=== PATIENT | female | born 1940 | race Caucasian/White ===

== ENCOUNTER 2016-12-16 19:28 | Emergency (ER) | payer MEDICARE, OTHER ==
[~2016-12-16] VITALS: Ht 152.4 cm; Wt 54.6 kg
[~2016-12-16 19:28] MED LIST: DOXY-168 PO; HYDR12.53 PO
[2016-12-16 22:11] LABS: BLOOD UREA NITROGEN 20 mg/dL (7-18)
[2016-12-16 22:16] LABS: ASPARTATE AMINO TRANSFERASE 13 U/L (15-37)
[2016-12-16] MEDS ORDERED: POTASSIUM CHLORIDE 20 MEQ TAB.ER.PRT PO ONE (22:30)
[2016-12-16] MEDS ORDERED: POTASSIUM CHLORIDE 20 MEQ TAB.ER.PRT ONE (22:52)
[2016-12-16 23:36] VITALS: BP 142/72
== END 2016-12-16 23:39 | disposition home or self-care (01) ==
LOC: ED 23:32
DX: N30.00 Acute cystitis without hematuria (principal); E87.6 Hypokalemia; I10 Essential (primary) hypertension
CPT/HCPCS: 36415; 80053; 81001; 85025; 87086; 93005; 99285

== ENCOUNTER 2016-12-24 08:51 | Emergency (ER) | payer MEDICARE, OTHER ==
[~2016-12-24] VITALS: Ht 152.4 cm; Wt 53.8 kg
[2016-12-24] MEDS ORDERED: POTA10TA5 PO (09:23)
[2016-12-24] MEDS ORDERED: CHOL10003 PO (09:25)
[2016-12-24] MEDS ORDERED: VITA1TAB19 PO (09:26)
[2016-12-24 11:10] LABS: BLOOD UREA NITROGEN 13 mg/dL (7-18)
[2016-12-24 12:13] VITALS: BP 145/79
== END 2016-12-24 12:52 | disposition home or self-care (01) ==
LOC: ED 10:44
DX: R51 Headache (principal); I10 Essential (primary) hypertension; E87.6 Hypokalemia
CPT/HCPCS: 36415; 80048; 82040; 83735; 85025; 85651; 99284

== ENCOUNTER 2017-09-02 08:04 | Emergency (ER) | payer MEDICARE, OTHER ==
[~2017-09-02] VITALS: Ht 152.4 cm; Wt 53.3 kg
[~2017-09-02 08:04] MED LIST changes: +CHOL10003 PO; -DOXY-168 PO; +DOXY100T10 PO; +POTA10TA5 PO; +VITA1TAB19 PO
[2017-09-02 10:05] VITALS: BP 147/87
== END 2017-09-02 10:08 | disposition home or self-care (01) ==
LOC: ED 10:07
DX: J18.0 Bronchopneumonia, unspecified organism (principal); J20.9 Acute bronchitis, unspecified; I10 Essential (primary) hypertension; E87.6 Hypokalemia
CPT/HCPCS: 71046; 99284

== ENCOUNTER 2018-02-22 17:19 | Emergency (ER) | payer MEDICARE, OTHER ==
[~2018-02-22] VITALS: Ht 152.4 cm; Wt 50.5 kg
[2018-02-22] MEDS ORDERED: IBUPROFEN 200 MG TABLET PO ONE (18:00)
[2018-02-22] MEDS ORDERED: CYCLOBENZAPRINE 10 MG TABLET PO ONE (18:00)
[2018-02-22] MEDS ORDERED: IBUPROFEN 200 MG TABLET ONE (18:32)
[2018-02-22] MEDS ORDERED: CYCLOBENZAPRINE 10 MG TABLET ONE (18:32)
[2018-02-22 18:37] VITALS: BP 153/77
== END 2018-02-22 19:25 | disposition home or self-care (01) ==
LOC: ED 18:46
DX: J02.8 Acute pharyngitis due to other specified organisms (principal); B97.89 Other viral agents as the cause of diseases classified elsewhere; M54.2 Cervicalgia; G89.29 Other chronic pain; I10 Essential (primary) hypertension
CPT/HCPCS: 87081; 87880; 99284

== ENCOUNTER 2018-05-01 21:15 | Emergency (ER) | payer MEDICARE, OTHER ==
[~2018-05-01] VITALS: Ht 152.4 cm; Wt 50.3 kg
[2018-05-01] MEDS ORDERED: ONDANSETRON 2MG/ML, 2ML ONE (21:53)
[2018-05-01] MEDS ORDERED: ASPIRIN 81 MG TABLET CHEW ONE (21:54)
[2018-05-01] MEDS ORDERED: ONDANSETRON 2MG/ML, 2ML IVPush ONE (22:00)
[2018-05-01] MEDS ORDERED: SODIUM CHLORIDE 0.9% 1,000ML IVBOLUS ONE (22:00)
[2018-05-01] MEDS ORDERED: ASPIRIN 81 MG TABLET CHEW PO ONE (22:00)
[2018-05-01 22:21] LABS: BASOPHILS # (AUTO) 0.03 x10^3/uL (0-0.1); BASOPHILS % (AUTO) 0 % (0-1); EOSINOPHILS # (AUTO) 0.13 x10^3/uL (0-0.4); EOSINOPHILS % (AUTO) 1 % (1-7); LYMPHOCYTES # (AUTO) 0.93 x10^3/uL (1-3.4); LYMPHOCYTES % (AUTO) 8 % (22-44); MD NO; MEAN CORPUSCULAR HEMOGLOBIN 29.3 pg (27.0-34.8); MEAN CORPUSCULAR HGB CONC 33.8 g/dL (32.4-35.8); MEAN CORPUSCULAR VOLUME 86.7 fL (80-100); MEAN PLATELET VOLUME 6.6 fL (7.4-10.4); MONOCYTES # (AUTO) 0.42 x10^3/uL (0.2-0.8); MONOCYTES % (AUTO) 4 % (2-9); NEUTROPHILS # (AUTO) 10.36 x10^3/uL (1.8-6.8); NEUTROPHILS % (AUTO) 87 % (42-75); PLATELET COUNT 356 x10^3/uL (130-400); RED BLOOD COUNT 4.45 x10^6/uL (3.82-5.3); RED CELL DISTRIBUTION WIDTH 14.7 % (9.6-15.2)
[2018-05-01 22:33] LABS: ALBUMIN 3.5 g/dL (3.4-5.0); ANION GAP 8 mmol/L (5-15); CALCIUM 8.6 mg/dL (8.5-10.1); CHLORIDE 107 mmol/L (98-107)
[2018-05-01 22:38] LABS: ALANINE AMINOTRANSFERASE 24 U/L (12-78); ALKALINE PHOSPHATASE 58 U/L (45-117); BILIRUBIN,TOTAL 0.6 mg/dL (0.2-1.0); CREATININE 0.75 mg/dL (0.55-1.02); TROPONIN I < 0.015 ng/mL (0.000-0.045)
[2018-05-01 22:59] VITALS: BP 123/67
== END 2018-05-01 23:12 | disposition home or self-care (01) ==
LOC: ED 21:40
DX: R11.2 Nausea with vomiting, unspecified (principal); R10.84 Generalized abdominal pain; I10 Essential (primary) hypertension; Z90.89 Acquired absence of other organs; Z90.49 Acquired absence of other specified parts of digestive tract
CPT/HCPCS: 36415; 71045; 80053; 83690; 83880; 84484; 85025; 93005; 96361; 96374; 99284; J2405; J7030